=== PATIENT | male | born 1940 | race Caucasian/White ===

== ENCOUNTER → 2016-07-18 07:26 | Outpatient (CLI) | payer MEDICARE, BC ==
[2009-04-20 14:58] VITALS: BMI 34.0
== END | disposition home or self-care (01) ==
LOC: D.CT 07:26
DX: I71.4 Abdominal aortic aneurysm, without rupture (principal)

== ENCOUNTER → 2017-06-26 07:13 | Outpatient (CLI) | payer MEDICARE, BC ==
[2009-04-20 14:58] VITALS: BMI 34.0
== END | disposition home or self-care (01) ==
LOC: D.US 07:13
DX: I71.4 Abdominal aortic aneurysm, without rupture (principal)

== ENCOUNTER → 2017-06-29 10:43 | Outpatient (CLI) | payer MEDICARE, BC ==
[2009-04-20 14:58] VITALS: BMI 34.0
== END | disposition home or self-care (01) ==
LOC: D.CT 10:43
DX: I71.4 Abdominal aortic aneurysm, without rupture (principal)